=== PATIENT | female | born 1955 | race Caucasian/White ===

== ENCOUNTER → 2016-06-20 | Outpatient (CLI) | payer OTHER ==
--- NOTE | 2016-06-20 13:10 | Diagnostic Imaging Report ---
INDICATION: Left wrist pain. 3 views of the left wrist show no fracture, dislocation, or other acute abnormalities. IMPRESSION: No acute abnormalities seen in the wrist. Dictated by: Dictated on workstation # [id number]
== END ==
LOC: RAD 10:32
PROVIDERS: ATTEND Nurse Practitioner Family
DX: M25.532 Pain in left wrist (principal)
CPT/HCPCS: 73110

== ENCOUNTER → 2017-08-06 | Outpatient (CLI) | payer OTHER ==
--- NOTE | 2017-08-06 17:40 | Diagnostic Imaging Report ---
INDICATION: Routine screening. Comparison is made with prior exams from 12/07/2014 and 07/16/2012. The current study was also evaluated with a Computer Aided Detection (CAD) system. FINDINGS: Moderate parenchymal heterogeneity and increased density is noted. The overall parenchymal pattern appears stable. No dominant mass or malignant-appearing microcalcifications are seen. There are benign calcifications noted. The axillae are unremarkable. IMPRESSION: No mammographic features suspicious for malignancy are identified. ACR BI-RADS Category 2: Benign findings. Result letter will be mailed to the patient. Note: At least 10% of breast cancer is not imaged by mammography. Dictated by: Dictated on workstation # [id number]
== END ==
LOC: RAD 12:56
PROVIDERS: ATTEND Nurse Practitioner Family
DX: Z12.31 Encounter for screening mammogram for malignant neoplasm of breast (principal)
CPT/HCPCS: 77067

== ENCOUNTER → 2019-01-11 | Outpatient (CLI) | payer OTHER ==
--- NOTE | 2019-01-11 21:04 | Diagnostic Imaging Report ---
INDICATION: Screening. The current study was also evaluated with a Computer Aided Detection (CAD) system. 3-D Tomographic imaging was also performed. Comparison made with prior examinations from 08/06/2017, 12/07/2014, and 07/16/2012. FINDINGS: There are scattered fibroglandular densities bilaterally. There is no dominant mass, spiculated lesion, or suspicious calcification identified. The skin, nipples, and axillae are unremarkable. IMPRESSION: Negative. ACR BI-RADS Category 1: Negative. Result letter will be mailed to the patient. Note: At least 10% of breast cancer is not imaged by mammography. Dictated by: Dictated on workstation # [id number]
== END ==
LOC: RAD 13:05
PROVIDERS: ATTEND Family Medicine
DX: Z12.31 Encounter for screening mammogram for malignant neoplasm of breast (principal)
CPT/HCPCS: 77067

== ENCOUNTER → 2020-02-23 | Outpatient (CLI) | payer OTHER ==
--- NOTE | 2020-02-24 09:21 | Diagnostic Imaging Report ---
INDICATION: Routine screening. Comparison is made with prior mammogram 01/11/2019 and 08/06/2017. 2-D and 3-D bilateral screening mammography was performed with CAD. Both breasts remain heterogeneously dense, limiting the sensitivity of mammography. No mass or malignant appearing microcalcifications are seen. Axillae are unremarkable. IMPRESSION: BI-RADS Category 1 No mammographic features suspicious for malignancy are identified. ACR BI-RADS Category 1: Negative. Result letter will be mailed to the patient. Note: At least 10% of breast cancer is not imaged by mammography. Dictated by: Dictated on workstation # [id number]
== END ==
LOC: RAD 14:45
PROVIDERS: ATTEND Nurse Practitioner Family
DX: Z12.31 Encounter for screening mammogram for malignant neoplasm of breast (principal)
CPT/HCPCS: 77063; 77067

== ENCOUNTER → 2021-03-11 | Outpatient (CLI) | payer OTHER ==
--- NOTE | 2021-03-11 16:09 | Diagnostic Imaging Report ---
INDICATION: Routine screening. COMPARISON: 02/23/2020 and 01/11/2019. TECHNIQUE: 2D and 3D bilateral screening mammography was performed with CAD. FINDINGS: Both breasts are heterogeneously dense, limiting the sensitivity of mammography. The parenchymal pattern is stable. No mass or malignant-appearing microcalcifications are seen. The axillae are unremarkable. IMPRESSION: No mammographic features suspicious for malignancy are identified. ACR BI-RADS Category 1: Negative. Result letter will be mailed to the patient. Note: At least 10% of breast cancer is not imaged by mammography. Dictated by: Dictated on workstation # [id number]
== END ==
LOC: RAD 10:55
PROVIDERS: ATTEND Family Medicine
DX: Z12.31 Encounter for screening mammogram for malignant neoplasm of breast (principal)
CPT/HCPCS: 77063; 77067

== ENCOUNTER → 2022-03-25 | Outpatient (CLI) | payer MEDICARE, OTHER ==
--- NOTE | 2022-03-26 13:05 | Diagnostic Imaging Report ---
EXAMINATION: Bilateral screening mammogram with CAD. INDICATION: Screening. COMPARISON: This study was compared to the prior exams of 03/11/2021, 02/23/2020, and 01/11/2019. PERSONAL HISTORY: At this time, there are no current complaints. COMPARISON: This study was compared to the prior exams of 02/24/2020. PERSONAL HISTORY: At this time, there are no current complaints. FINDINGS: The fibroglandular tissue in both breasts is heterogeneously dense. This does limit the sensitivity of this exam. Overall, there does not appear to have been any significant change when compared to the prior study. No primary or secondary sign of malignancy is noted. IMPRESSION: There is no radiographic evidence for malignancy. ACR BI-RADS Category 1: Negative. Result letter will be mailed to the patient. Note: At least 10% of breast cancer is not imaged by mammography. Dictated by: Dictated on workstation # [id number]
== END ==
LOC: RAD 13:45
PROVIDERS: ATTEND Nurse Practitioner Family
DX: Z12.31 Encounter for screening mammogram for malignant neoplasm of breast (principal)
CPT/HCPCS: 77063; 77067

== ENCOUNTER → 2023-03-10 | Outpatient (CLI) | payer MEDICARE, SELFPAY ==
--- NOTE | 2023-03-10 12:03 | Diagnostic Imaging Report ---
CLINICAL HISTORY: Screening. COMPARISON: None. TECHNIQUE: Non-contrast enhanced EKG-gated axial images were obtained with a coned down field of view to assess for coronary calcium. Post processing of the images was performed on an independent work station. CTDI volume 5.86 mGy DLP 70.3 mGy*cm FINDINGS: Important Information About Your Scan: The following information is based on an analysis of the coronary arteries only. Calcium deposits do not correspond directly to the percentage of narrowing of the arteries. They do correlated directly to the amount of coronary plaque, and to the risk of future coronary disease. The calcium deposits usually begin to form years before any symptoms develop. Early detection and modification of risk factors, such as smoking and cholesterol intake, can slow the progress of coronary artery disease. A low score suggests a low likelihood of coronary artery disease, but does not exclude the possibility of significant coronary artery narrowing. The results should be discussed with your physician, taking into account other risk factors such as age, gender, family history, diabetes, smoking or high cholesterol levels. Should you ever experience chest pain, difficulty breathing, discomfort radiating into your neck or arm, or discomfort combined with lightheadedness, sweating, fainting or nausea, you should seek prompt medical attention. Calcium Score: Agatston units 0 - 0: No identifiable atherosclerotic plaque 1 - 10: Minimal plaque burden 11 - 100: Mild plaque burden 101 - 400: Moderate plaque burden Greater than 401: Extensive plaque burden. Score Summary: Your total calcium score is 0 Agatston units. Ranking Guide: Your score of 0 Agatston units places you in the 1st percentile rank. That means out of a group of people with same gender and similar age as yourself 99 percent will have a higher calcium score than you, as reported in literature. CORONARY AJ-130 Left Main artery (LMA) 0 Left Anterior Descending (LAD) 0 Left Circumflex (LCX) 0 Right Coronary Artery (RCA) 0 Posterior Descending Artery (PDA) 0 Total 0 Agatston units The visualized portions of the lungs demonstrate no focal nodules or masses. There are no pleural or pericardial effusions. The visualized osseous structures are age appropriate. IMPRESSION: 1. CT coronary calcium score is 0 Agatston units 2. Adoption and maintenance of a healthy lifestyle is recommended for all people. This includes regular appropriate exercise and observance of a proper diet, to ensure balanced nutrition and weight control. 3. Tobacco use should be avoided. 4. Hypercholesterolemia has been linked to coronary atherosclerosis. Ensure strict adherence to NCEP (National Cholesterol Education Panel) cholesterol-lowering guidelines. For primary prevention, these include a target goal for total cholesterol of less than 200 mg/dL, HDL cholesterol of greater than 40 mg/dL, triglycerides of less than 200 mg/dL and LDL cholesterol of less than 100 mg/dL Secondary prevention involves more stringent goals. However, please note that these are general recommendations and as with all such matters, the personal family physician should be consulted regarding recommendations appropriate for the individual. Recommend evaluation and treatment for all the other cardiovascular risk factors. Dictated by: Dictated on workstation # [id number]
== END ==
LOC: RAD 09:55
PROVIDERS: ATTEND Family Medicine
DX: Z00.00 Encounter for general adult medical examination without abnormal findings (principal); R06.09 Other forms of dyspnea; Z72.0 Tobacco use; E78.00 Pure hypercholesterolemia, unspecified
CPT/HCPCS: 75571